=== PATIENT | male | born 1935 | race Two or more races ===

== ENCOUNTER 2016-06-27 00:53 | Inpatient (IN) | payer OTHER, MEDICAID ==
[~2016-06-27] VITALS: Ht 172.7 cm; Wt 78.8 kg
[2016-06-27 02:08] LABS: Basophils # (auto) 0 uL; Basophils % (auto) 0.5 % (0.0-2.0); Eosinophils # (auto) 0.1 uL; Eosinophils % (auto) 1.8 % (0.0-7.0); Hemoglobin 12.5 g/dL (13.5-17.5); Lymphocytes # (auto) 1.6 uL; Lymphocytes % (auto) 21.7 % (10.0-50.0); Mean Corpuscular Hemoglobin 31.6 pg (28.0-32.0); Mean Corpuscular Hgb Conc. 33.8 g/dL (32.0-36.0); Mean Corpuscular Volume 93.4 fL (80.0-100.0); Mean Platelet Volume 8.7 fL (7.4-10.4); Monocytes # (auto) 0.7 uL; Monocytes % (auto) 9.5 % (0.0-12.0); Neutrophils # (auto) 4.8 uL; Neutrophils % (auto) 66.5 % (37.0-80.0); Platelet Count (auto) 185 10^3/uL (140-450); Red Cell Distribution Width 14.8 % (11.6-16.0); White Blood Cell 7.2 10^3/uL (4.4-10.8)
[2016-06-27 02:19] LABS: Albumin 3.2 g/dL (3.4-5.0); Anion Gap 9 (5-15); Aspartate Aminotransferase 18 U/L (15-37); Blood Urea Nitrogen 18 mg/dL (7-18); Calcium 8.1 mg/dL (8.5-10.1); Carbon Dioxide 25 mmol/L (21-32); Chloride 111 mmol/L (98-107); GFR African American 93 mL/min; GFR Non-African American 77 mL/min; Glucose 97 mg/dL (74-106); Magnesium 2.2 mg/dL (1.6-2.6); Potassium 3.7 mmol/L (3.5-5.1); Sodium 145 mmol/L (136-145)
[2016-06-27 02:27] LABS: Temperature: 21.6 C (20.0-25.0)
[2016-06-27 02:29] LABS: Alkaline Phosphatase 87 U/L (45-117); Bilirubin, Total 0.3 mg/dL (0.2-1.0); Total Protein 6.3 g/dL (6.4-8.2)
[2016-06-27 02:41] LABS: Urine RBC None Seen /hpf (0 - 3)
[2016-06-27 02:52] LABS: Urine Bilirubin Negative (Negative); Urine Blood Negative /uL (Negative); Urine Color Yellow (Yellow); Urine Glucose Normal (Normal); Urine Ketone Negative (Negative); Urine Nitrite Negative (Negative); Urine Urobilinogen Normal (Negative); Urine pH 5.5 (5.0-8.0)
[2016-06-27] MEDS ORDERED: FUROSEMIDE 20 MG/2 ML VIAL IV ONE (07:00)
[2016-06-27] MEDS ORDERED: ASPirin 81 mg TAB PO ONE (08:45)
[2016-06-27] MEDS ORDERED: MORPHINE SULF INJ 2 MG/ML SYRINGE 1ML IV PRN ×2 (11:00)
[2016-06-27] MEDS ORDERED: DEXTROSE (50%) 50ML SYRG IV PRN (11:00)
[2016-06-27] MEDS ORDERED: ACETAMINOPHEN 500 MG TAB PO PRN (11:00)
[2016-06-27] MEDS ORDERED: LORazepam 0.5 MG TAB PO PRN (11:00)
[2016-06-27] MEDS ORDERED: TEMAZEPAM 15 MG CAP PO PRN (11:00)
[2016-06-27] MEDS ORDERED: LACTULOSE 20Gm/30ML SOLN PO PRN (11:00)
[2016-06-27] MEDS ORDERED: PROMETHAZINE HCL 25 MG/ML 1ML IV PRN (11:00)
[2016-06-27] MEDS ORDERED: NITROGLYCERIN 0.4 MG SL TAB SL PRN (11:00)
[2016-06-27] MEDS ORDERED: METOPROLOL TARTRATE 25 MG TAB PO ONE (11:15)
[2016-06-27] MEDS ORDERED: ENOXAPARIN SOD 40 MG/0.4 ML SYRINGE SC ONE (11:15)
[2016-06-27] MEDS ORDERED: NITROGLYCERIN 0.2MG/HR TOPICAL PATCH TD ONE (11:15)
[2016-06-27] MEDS ORDERED: ENALAPRIL MALEATE 10 MG TAB PO ONE (11:15)
[2016-06-27] MEDS: SODIUM CHLORIDE 0.9% 1,000 ML IV SCH ×2 (11:44→21:25)
[2016-06-27] MEDS: ACCU-CHEK COMFORT CURVE STRIP VI SCH ×3 (11:48→21:23)
[2016-06-27] MEDS: InsuLIN REG 1unit/0.01ml Soln (100units/ml) SC SCH ×3 (12:18→21:23)
[2016-06-27] MEDS: HYDROcodone-ACET 5/325MG TAB PO PRN (18:08)
[2016-06-27 20:30] VITALS: BP 137/74
[2016-06-27] MEDS: ATORVASTATIN 20 MG TAB PO SCH (21:22)
[2016-06-27] MEDS: METOPROLOL TARTRATE 25 MG TAB PO SCH (21:22)
[2016-06-27 21:49] VITALS: BP 132/67
[2016-06-28 04:38] VITALS: BP 105/58
[2016-06-28] MEDS: ACCU-CHEK COMFORT CURVE STRIP VI SCH ×4 (05:25→21:29)
[2016-06-28] MEDS: InsuLIN REG 1unit/0.01ml Soln (100units/ml) SC SCH ×4 (05:25→21:28)
[2016-06-28 07:05] LABS: Cholesterol 191 mg/dL (<200); HDL Cholesterol 41 mg/dL (40-59); LDL Cholesterol 128 mg/dL (<100); Triglycerides 135 mg/dL (<150)
[2016-06-28 08:20] VITALS: BP 123/70
[2016-06-28 09:03] VITALS: BP 124/73
[2016-06-28] MEDS ORDERED: ADENOSINE IV STA (09:46)
[2016-06-28] MEDS ORDERED: GIVE UN DILUTED IV STA (09:46)
[2016-06-28] MEDS ORDERED: ADENOSINE 61 MG in GIVE UN-DILUTED 0 ML IV STA (10:03)
[2016-06-28] MEDS ORDERED: ADENOSINE 61 MG in GIVE UN-DILUTED 0 ML IV ONE ×4 (11:30)
[2016-06-28] MEDS: NITROGLYCERIN 0.2MG/HR TOPICAL PATCH TD SCH (12:18)
[2016-06-28] MEDS: SODIUM CHLORIDE 0.9% 1,000 ML IV SCH (12:26)
[2016-06-28] MEDS: ASPirin 81 mg TAB PO SCH (12:37)
[2016-06-28] MEDS: METOPROLOL TARTRATE 25 MG TAB PO SCH ×2 (12:39→21:28)
[2016-06-28] MEDS: ENALAPRIL MALEATE 10 MG TAB PO SCH (12:40)
[2016-06-28] MEDS: ENOXAPARIN SOD 40 MG/0.4 ML SYRINGE SC SCH (12:46)
[2016-06-28 17:11] VITALS: BP 147/71
[2016-06-28] MEDS: ATORVASTATIN 20 MG TAB PO SCH (21:27)
[2016-06-28] MEDS: HYDROcodone-ACET 5/325MG TAB PO PRN (21:33)
[2016-06-28 22:00] VITALS: BP 147/72
[2016-06-29] MEDS: SODIUM CHLORIDE 0.9% 1,000 ML IV SCH ×2 (01:19→16:32)
[2016-06-29 05:10] VITALS: BP 147/72
[2016-06-29] MEDS: ACCU-CHEK COMFORT CURVE STRIP VI SCH ×3 (06:18→17:00)
[2016-06-29] MEDS: InsuLIN REG 1unit/0.01ml Soln (100units/ml) SC SCH ×3 (06:18→17:00)
[2016-06-29 08:00] VITALS: BP 150/96
[2016-06-29] MEDS: ENOXAPARIN SOD 40 MG/0.4 ML SYRINGE SC SCH (09:53)
[2016-06-29] MEDS: ASPirin 81 mg TAB PO SCH (09:54)
[2016-06-29] MEDS: ENALAPRIL MALEATE 10 MG TAB PO SCH (09:54)
[2016-06-29] MEDS: METOPROLOL TARTRATE 25 MG TAB PO SCH (09:55)
[2016-06-29 10:09] VITALS: BP 150/96
[2016-06-29] MEDS: NITROGLYCERIN 0.2MG/HR TOPICAL PATCH TD SCH (11:19)
[2016-06-29] MEDS ORDERED: ENALAPRILAT 1.25 MG/ML-1ML VIAL IV ONE (11:45)
[2016-06-29 15:01] VITALS: BP 185/91
[2016-06-29 16:36] VITALS: BP 156/72
== END 2016-06-29 17:04 | disposition home or self-care (01) | DRG 206 ==
LOC: ER 00:53 → TELE 00:54 → TELE-EAST 19:40
PROVIDERS: ADMIT Internal Medicine; ATTEND Internal Medicine
DX: M94.0 Chondrocostal junction syndrome [Tietze] (principal); I25.10 Atherosclerotic heart disease of native coronary artery without angina pectoris; E11.9 Type 2 diabetes mellitus without complications; I50.9 Heart failure, unspecified; I11.0 Hypertensive heart disease with heart failure; I25.2 Old myocardial infarction; Z95.1 Presence of aortocoronary bypass graft; Z95.0 Presence of cardiac pacemaker; Z79.4 Long term (current) use of insulin
CPT/HCPCS: 36415; 71010; 78452; 80053; 80061; 81001; 82550; 82962; 83036; 83735; 83880; 84484; 85025; 85379; 85652; 86141; 93005; 93017; 93971; 96372; 96374; J0153

== ENCOUNTER 2016-07-04 07:47 | Inpatient (IN) | payer OTHER, MEDICAID ==
[~2016-07-04] VITALS: Ht 162.6 cm; Wt 64.8 kg
[2016-07-04 11:10] LABS: Basophils # (auto) 0 uL; Basophils % (auto) 0.3 % (0.0-2.0); Eosinophils # (auto) 0 uL; Eosinophils % (auto) 0.7 % (0.0-7.0); Hematocrit 38.6 % (41.0-53.0); Lymphocytes # (auto) 1.2 uL; Mean Corpuscular Hemoglobin 31.5 pg (28.0-32.0); Mean Corpuscular Hgb Conc. 33.6 g/dL (32.0-36.0); Mean Corpuscular Volume 93.6 fL (80.0-100.0); Mean Platelet Volume 8.8 fL (7.4-10.4); Monocytes # (auto) 0.5 uL; Monocytes % (auto) 6.9 % (0.0-12.0); Neutrophils # (auto) 5.5 uL; Neutrophils % (auto) 76.1 % (37.0-80.0); Platelet Count (auto) 210 10^3/uL (140-450); Red Cell Distribution Width 14.4 % (11.6-16.0); White Blood Cell 7.3 10^3/uL (4.4-10.8)
[2016-07-04] MEDS ORDERED: SODIUM CHLORIDE 0.9% 1,000 ML IV ONE (11:27)
[2016-07-04 11:35] LABS: Albumin 3.9 g/dL (3.4-5.0); Alkaline Phosphatase 93 U/L (45-117); Anion Gap 8 (5-15); Aspartate Aminotransferase 27 U/L (15-37); BUN/Creatinine Ratio 15.1; Bilirubin, Total 0.6 mg/dL (0.2-1.0); Blood Urea Nitrogen 16 mg/dL (7-18); Calcium 8.8 mg/dL (8.5-10.1); Carbon Dioxide 28 mmol/L (21-32); Chloride 111 mmol/L (98-107); GFR African American 87 mL/min; GFR Non-African American 72 mL/min; Glucose 104 mg/dL (74-106); Potassium 3.7 mmol/L (3.5-5.1); Sodium 147 mmol/L (136-145); Total Protein 7.2 g/dL (6.4-8.2)
[2016-07-04] MEDS: SODIUM CHLORIDE 0.9% 1,000 ML IV SCH ×2 (12:06→22:14)
[2016-07-04 12:08] LABS: B-Type Natriuretic Peptide 71.03 pg/mL (0-100)
[2016-07-04] MEDS ORDERED: ACETAMINOPHEN 500 MG TAB PO PRN (12:15)
[2016-07-04] MEDS ORDERED: TEMAZEPAM 15 MG CAP PO PRN (12:15)
[2016-07-04] MEDS ORDERED: ONDANSETRON HCL 4 MG/2 ML VIAL IV PRN (12:15)
[2016-07-04] MEDS ORDERED: DEXTROSE (50%) 50ML SYRG IV PRN (12:15)
[2016-07-04] MEDS ORDERED: LACTULOSE 20Gm/30ML SOLN PO PRN (12:15)
[2016-07-04] MEDS ORDERED: MORPHINE SULF INJ 2 MG/ML SYRINGE 1ML IV PRN ×2 (12:15)
[2016-07-04] MEDS ORDERED: NITROGLYCERIN 0.4 MG SL TAB SL PRN (12:15)
[2016-07-04] MEDS ORDERED: LORazepam 0.5 MG TAB PO PRN (12:15)
[2016-07-04] MEDS ORDERED: NITROGLYCERIN 0.2MG/HR TOPICAL PATCH TD ONE (13:00)
[2016-07-04] MEDS ORDERED: ENOXAPARIN SOD 40 MG/0.4 ML SYRINGE SC ONE (13:00)
[2016-07-04] MEDS ORDERED: PANTOPRAZOLE 40 MG TAB PO ONE (13:00)
[2016-07-04] MEDS ORDERED: METOPROLOL TARTRATE 25 MG TAB PO ONE (13:00)
[2016-07-04] MEDS: ACCU-CHEK COMFORT CURVE STRIP VI SCH ×2 (17:00→22:14)
[2016-07-04] MEDS: InsuLIN REG 1unit/0.01ml Soln (100units/ml) SC SCH ×2 (17:00→22:00)
[2016-07-04 17:42] LABS: Urine RBC None Seen /hpf (0 - 3)
[2016-07-04 18:10] LABS: Urine Bilirubin Negative (Negative); Urine Blood Negative /uL (Negative); Urine Color Yellow (Yellow); Urine Glucose Normal (Normal); Urine Ketone Negative (Negative); Urine Nitrite Negative (Negative); Urine Urobilinogen Normal (Negative); Urine pH 5.5 (5.0-8.0)
[2016-07-04] MEDS ORDERED: ACET500C PO (18:57)
[2016-07-04] MEDS ORDERED: OLME40TA27 PO (18:57)
[2016-07-04] MEDS ORDERED: IBUP600T27 PO (18:57)
[2016-07-04] MEDS ORDERED: ATOR40TA52 PO (18:57)
[2016-07-04] MEDS ORDERED: ASPI81CH43 PO (18:57)
[2016-07-04] MEDS ORDERED: ISOS10TA45 PO (18:57)
[2016-07-04] MEDS ORDERED: CARV12.544 PO (18:57)
[2016-07-04 20:02] VITALS: BP 135/81
[2016-07-04 22:00] VITALS: BP 135/81
[2016-07-04] MEDS: ATORVASTATIN 20 MG TAB PO SCH (22:01)
[2016-07-04] MEDS: METOPROLOL TARTRATE 25 MG TAB PO SCH (22:02)
[2016-07-05 05:00] VITALS: BP 158/79
[2016-07-05 06:14] LABS: Cholesterol 168 mg/dL (0-200); HDL Cholesterol 42 mg/dL (40-59); LDL Cholesterol 111 mg/dL (<100); Triglycerides 107 mg/dL (<150)
[2016-07-05] MEDS: InsuLIN REG 1unit/0.01ml Soln (100units/ml) SC SCH ×2 (06:38→11:30)
[2016-07-05] MEDS: ACCU-CHEK COMFORT CURVE STRIP VI SCH ×2 (06:38→11:43)
[2016-07-05 08:00] VITALS: BP 153/76
[2016-07-05] MEDS: HYDROcodone-ACET 5/325MG TAB PO PRN (08:12)
[2016-07-05] MEDS: ASPirin 81 mg TAB PO SCH (10:24)
[2016-07-05] MEDS: ENOXAPARIN SOD 40 MG/0.4 ML SYRINGE SC SCH (10:24)
[2016-07-05] MEDS: PANTOPRAZOLE 40 MG TAB PO SCH (10:24)
[2016-07-05] MEDS: METOPROLOL TARTRATE 25 MG TAB PO SCH ×2 (10:24→22:10)
[2016-07-05] MEDS: NITROGLYCERIN 0.2MG/HR TOPICAL PATCH TD SCH (10:26)
[2016-07-05 12:00] VITALS: BP 155/82
[2016-07-05] MEDS: SODIUM CHLORIDE 0.9% 1,000 ML IV SCH (14:46)
[2016-07-05] MEDS ORDERED: IOHEXOL 350 MG/ML 100ML IJ ONE (15:43)
[2016-07-05 17:00] VITALS: BP 140/69
[2016-07-05 22:00] VITALS: BP 146/73
[2016-07-05] MEDS: ATORVASTATIN 20 MG TAB PO SCH (22:11)
[2016-07-06] MEDS: SODIUM CHLORIDE 0.9% 1,000 ML IV SCH ×2 (04:06→16:42)
[2016-07-06 05:00] VITALS: BP 146/74
[2016-07-06 09:00] VITALS: BP 151/77
[2016-07-06] MEDS: PANTOPRAZOLE 40 MG TAB PO SCH (10:37)
[2016-07-06] MEDS: METOPROLOL TARTRATE 25 MG TAB PO SCH ×2 (10:38→22:46)
[2016-07-06] MEDS: NITROGLYCERIN 0.2MG/HR TOPICAL PATCH TD SCH (10:38)
[2016-07-06] MEDS: ASPirin 81 mg TAB PO SCH (10:39)
[2016-07-06] MEDS: ENOXAPARIN SOD 40 MG/0.4 ML SYRINGE SC SCH (10:39)
[2016-07-06 12:43] VITALS: BP 114/82
[2016-07-06 16:29] VITALS: BP 151/76
[2016-07-06] MEDS: HYDROcodone-ACET 5/325MG TAB PO PRN (18:24)
[2016-07-06 22:00] VITALS: BP 159/81
[2016-07-06] MEDS: ATORVASTATIN 20 MG TAB PO SCH (22:45)
[2016-07-07 05:00] VITALS: BP 154/74
[2016-07-07] MEDS: SODIUM CHLORIDE 0.9% 1,000 ML IV SCH ×2 (06:40→20:06)
[2016-07-07] MEDS: HYDROcodone-ACET 5/325MG TAB PO PRN ×2 (07:29→20:18)
[2016-07-07] MEDS: ASPirin 81 mg TAB PO SCH (08:57)
[2016-07-07] MEDS: METOPROLOL TARTRATE 25 MG TAB PO SCH ×2 (08:58→22:24)
[2016-07-07] MEDS: PANTOPRAZOLE 40 MG TAB PO SCH (08:59)
[2016-07-07 09:00] VITALS: BP 160/89
[2016-07-07] MEDS: ENOXAPARIN SOD 40 MG/0.4 ML SYRINGE SC SCH (09:00)
[2016-07-07] MEDS: NITROGLYCERIN 0.2MG/HR TOPICAL PATCH TD SCH (09:01)
[2016-07-07 13:00] VITALS: BP 133/68
[2016-07-07 17:00] VITALS: BP 123/69
[2016-07-07] MEDS: ATORVASTATIN 20 MG TAB PO SCH (22:24)
[2016-07-07 22:53] VITALS: BP 146/74
[2016-07-08] MEDS: HYDROcodone-ACET 5/325MG TAB PO PRN (05:41)
[2016-07-08 05:42] VITALS: BP 136/75
[2016-07-08 08:40] VITALS: BP 146/85
[2016-07-08] MEDS: SODIUM CHLORIDE 0.9% 1,000 ML IV SCH (09:26)
[2016-07-08] MEDS: ENOXAPARIN SOD 40 MG/0.4 ML SYRINGE SC SCH (09:33)
[2016-07-08] MEDS: NITROGLYCERIN 0.2MG/HR TOPICAL PATCH TD SCH (09:33)
[2016-07-08] MEDS: ASPirin 81 mg TAB PO SCH (09:33)
[2016-07-08] MEDS: METOPROLOL TARTRATE 25 MG TAB PO SCH (09:34)
[2016-07-08] MEDS: PANTOPRAZOLE 40 MG TAB PO SCH (09:34)
[2016-07-08 09:49] LABS: Basophils # (auto) 0 uL; Basophils % (auto) 0.4 % (0.0-2.0); Eosinophils # (auto) 0.1 uL; Eosinophils % (auto) 0.9 % (0.0-7.0); Hematocrit 40.9 % (41.0-53.0); Lymphocytes # (auto) 1.6 uL; Lymphocytes % (auto) 18.2 % (10.0-50.0); Mean Corpuscular Hemoglobin 31.6 pg (28.0-32.0); Mean Corpuscular Hgb Conc. 34.2 g/dL (32.0-36.0); Mean Corpuscular Volume 92.5 fL (80.0-100.0); Mean Platelet Volume 8.7 fL (7.4-10.4); Monocytes # (auto) 0.8 uL; Monocytes % (auto) 8.6 % (0.0-12.0); Neutrophils # (auto) 6.3 uL; Neutrophils % (auto) 71.9 % (37.0-80.0); Platelet Count (auto) 208 10^3/uL (140-450); Red Cell Distribution Width 14.5 % (11.6-16.0); White Blood Cell 8.7 10^3/uL (4.4-10.8)
[2016-07-08 12:31] VITALS: BP 153/73
[2016-07-08 14:11] VITALS: BP 153/73
== END 2016-07-08 16:00 | disposition home or self-care (01) | DRG 303 ==
LOC: ER 07:48 → TELE 07:49 → TELE-E-ADS 15:53 → TELE-WESTW 18:15
PROVIDERS: ADMIT Internal Medicine; ATTEND Family Medicine
DX: I25.110 Atherosclerotic heart disease of native coronary artery with unstable angina pectoris (principal); E11.9 Type 2 diabetes mellitus without complications; E78.5 Hyperlipidemia, unspecified; I10 Essential (primary) hypertension; M94.0 Chondrocostal junction syndrome [Tietze]; I25.2 Old myocardial infarction; Z95.0 Presence of cardiac pacemaker; Z95.1 Presence of aortocoronary bypass graft; Z79.82 Long term (current) use of aspirin; Z79.899 Other long term (current) drug therapy
CPT/HCPCS: 36415; 71020; 71275; 80053; 80061; 81001; 82550; 82962; 83036; 83880; 84132; 84484; 85025; 85379; 85652; 86141; 87081; 93005; 93306; 94761; 96372

== ENCOUNTER 2016-12-22 05:42 | Emergency (ER) | payer OTHER, MEDICAID ==
[~2016-12-22] VITALS: Ht 167.6 cm; Wt 72.6 kg
[~2016-12-22 05:42] MED LIST: ACET500C PO; ASPI81CH43 PO; ATOR40TA52 PO; CARV12.544 PO; IBUP600T27 PO; ISOS10TA45 PO; OLME40TA27 PO
[2016-12-22 06:56] LABS: Basophils # (auto) 0 uL; Basophils % (auto) 0.3 % (0.0-2.0); CONDITION Y; Eosinophils # (auto) 0.1 uL; Eosinophils % (auto) 1.9 % (0.0-7.0); Hematocrit 36.4 % (41.0-53.0); Hemoglobin 12.5 g/dL (13.5-17.5); Lymphocytes # (auto) 1.5 uL; Lymphocytes % (auto) 23.3 % (10.0-50.0); Mean Corpuscular Hemoglobin 32.1 pg (28.0-32.0); Mean Corpuscular Hgb Conc. 34.3 g/dL (32.0-36.0); Mean Corpuscular Volume 93.6 fL (80.0-100.0); Mean Platelet Volume 8.6 fL (6.9-10.8); Monocytes # (auto) 0.5 uL; Monocytes % (auto) 7.9 % (0.0-12.0); Neutrophils # (auto) 4.3 uL; Neutrophils % (auto) 66.6 % (37.0-80.0); Platelet Count (auto) 174 10^3/uL (140-450); Red Cell Distribution Width 14.4 % (11.8-14.3); White Blood Cell 6.5 10^3/uL (4.4-10.8)
[2016-12-22 07:16] LABS: INR 1.01 (0.9-1.15); Partial Thromboplastin Time 26.1 sec (22.64-33.71)
[2016-12-22 07:28] LABS: Albumin 3.7 g/dL (3.4-5.0); Alkaline Phosphatase 87 U/L (45-117); Anion Gap 5 (5-15); Aspartate Aminotransferase 24 U/L (15-37); Bilirubin, Total 0.7 mg/dL (0.2-1.0); Blood Urea Nitrogen 13 mg/dL (7-18); Calcium 8.6 mg/dL (8.5-10.1); Carbon Dioxide 27 mmol/L (21-32); Chloride 110 mmol/L (98-107); GFR African American 93 mL/min; GFR Non-African American 77 mL/min; Glucose 102 mg/dL (74-106); Magnesium 2.3 mg/dL (1.6-2.6); Potassium 3.6 mmol/L (3.5-5.1); Sodium 142 mmol/L (136-145); Total Protein 6.7 g/dL (6.4-8.2)
[2016-12-22 11:19] VITALS: BP 118/79
[2016-12-26] MEDS ORDERED: ISO60SRT PO (14:37)
[2016-12-26] MEDS ORDERED: CAR125T PO (14:37)
== END 2016-12-22 11:36 | disposition home or self-care (01) ==
LOC: EDBD 05:42 → ER 05:52
DX: I25.10 Atherosclerotic heart disease of native coronary artery without angina pectoris (principal); I10 Essential (primary) hypertension; E11.9 Type 2 diabetes mellitus without complications; I25.2 Old myocardial infarction; Z95.1 Presence of aortocoronary bypass graft; Z95.0 Presence of cardiac pacemaker; Z79.899 Other long term (current) drug therapy
CPT/HCPCS: 36415; 71010; 80053; 83735; 84484; 85025; 85610; 85730; 93005; 99285; J7030

== ENCOUNTER 2017-01-07 06:48 | Emergency (ER) | payer OTHER, MEDICAID ==
[~2017-01-07] VITALS: Ht 157.5 cm; Wt 63.5 kg
[~2017-01-07 06:48] MED LIST changes: +CAR125T PO; -CARV12.544 PO; -IBUP600T27 PO; +ISO60SRT PO; -ISOS10TA45 PO
[2017-01-07] MEDS ORDERED: ASPirin 81 mg TAB PO ONE (07:30)
[2017-01-07 09:04] LABS: Basophils # (auto) 0 uL; Basophils % (auto) 0.4 % (0.0-2.0); Eosinophils # (auto) 0.1 uL; Eosinophils % (auto) 1.5 % (0.0-7.0); Hematocrit 37.3 % (41.0-53.0); Hemoglobin 12.9 g/dL (13.5-17.5); Lymphocytes # (auto) 1.6 uL; Lymphocytes % (auto) 19.6 % (10.0-50.0); Mean Corpuscular Hemoglobin 32.4 pg (28.0-32.0); Mean Corpuscular Hgb Conc. 34.8 g/dL (32.0-36.0); Mean Corpuscular Volume 93.2 fL (80.0-100.0); Mean Platelet Volume 8.4 fL (6.9-10.8); Monocytes # (auto) 0.6 uL; Monocytes % (auto) 7.7 % (0.0-12.0); Neutrophils # (auto) 5.6 uL; Neutrophils % (auto) 70.8 % (37.0-80.0); Platelet Count (auto) 145 10^3/uL (140-450); Red Cell Distribution Width 13.9 % (11.8-14.3)
[2017-01-07 09:20] LABS: INR 1.05 (0.9-1.15); Partial Thromboplastin Time 26.7 sec (22.64-33.71); Prothrombin Time 11.4 sec (9.37-12.3)
[2017-01-07 09:27] LABS: Albumin 3.5 g/dL (3.4-5.0); Alkaline Phosphatase 100 U/L (45-117); Anion Gap 5 (5-15); Aspartate Aminotransferase 23 U/L (15-37); BUN/Creatinine Ratio 16.1; Bilirubin, Total 0.7 mg/dL (0.2-1.0); Blood Urea Nitrogen 15 mg/dL (7-18); Calcium 8.4 mg/dL (8.5-10.1); Carbon Dioxide 25 mmol/L (21-32); Chloride 112 mmol/L (98-107); GFR African American 101 mL/min; GFR Non-African American 83 mL/min; Glucose 100 mg/dL (74-106); Magnesium 2.4 mg/dL (1.6-2.6); Potassium 3.6 mmol/L (3.5-5.1); Sodium 142 mmol/L (136-145); Total Protein 6.5 g/dL (6.4-8.2)
[2017-01-07] MEDS ORDERED: NITROGLYCERIN 0.4 MG SL TAB SL ONE (09:45)
[2017-01-07 09:49] LABS: B-Type Natriuretic Peptide 177.36 pg/mL (0-100)
[2017-01-07 10:04] LABS: Temperature: 22.3 C (20.0-25.0)
[2017-01-07] MEDS ORDERED: ACETAMINOPHEN 325 MG TAB PO ONE (10:15)
[2017-01-07] MEDS ORDERED: cloNIDine HCL 0.1 MG TAB PO ONE (10:15)
[2017-01-07 11:11] VITALS: BP 168/76
== END 2017-01-07 14:29 | disposition home or self-care (01) ==
LOC: EDBD 06:48 → ER 06:48
DX: R07.9 Chest pain, unspecified (principal); I10 Essential (primary) hypertension; I25.2 Old myocardial infarction; E78.5 Hyperlipidemia, unspecified; I25.810 Atherosclerosis of coronary artery bypass graft(s) without angina pectoris; R06.02 Shortness of breath
CPT/HCPCS: 36415; 71010; 80053; 83735; 83880; 84484; 85025; 85610; 85730; 93005

== ENCOUNTER 2017-05-23 09:03 | Emergency (ER) | payer OTHER, MEDICAID ==
[~2017-05-23] VITALS: Ht 162.6 cm; Wt 62.1 kg
[~2017-05-23 09:03] MED LIST changes: -ACET500C PO; -ATOR40TA52 PO
[2017-05-23 09:59] LABS: Basophils # (auto) 0.1 uL; Basophils % (auto) 0.7 % (0.0-2.0); Eosinophils # (auto) 0.2 uL; Eosinophils % (auto) 2.2 % (0.0-7.0); Hemoglobin 14.3 g/dL (13.5-17.5); Lymphocytes # (auto) 1.3 uL; Lymphocytes % (auto) 16.6 % (10.0-50.0); Mean Corpuscular Hemoglobin 30.9 pg (28.0-32.0); Mean Corpuscular Hgb Conc. 33.2 g/dL (32.0-36.0); Mean Corpuscular Volume 93.2 fL (80.0-100.0); Monocytes # (auto) 0.7 uL; Monocytes % (auto) 8.5 % (0.0-12.0); Neutrophils # (auto) 5.6 uL; Nucleated Red Blood Cells % 0.2 %; Platelet Count (auto) 184 10^3/uL (140-450); Red Blood Cells 4.62 10^6/uL (4.5-5.90); Red Cell Distribution Width 14.6 % (11.8-14.3); White Blood Cell 7.8 10^3/uL (4.4-10.8)
[2017-05-23 10:25] LABS: Alanine Aminotransferase 44 U/L (16-61); Anion Gap 11 (5-15); Aspartate Aminotransferase 30 U/L (15-37); BUN/Creatinine Ratio 20.8; Blood Urea Nitrogen 22 mg/dL (7-18); Calcium 8.8 mg/dL (8.5-10.1); Carbon Dioxide 25 mmol/L (21-32); Chloride 107 mmol/L (98-107); GFR African American 86 mL/min; GFR Non-African American 71 mL/min; Glucose 106 mg/dL (74-106); Magnesium 2.2 mg/dL (1.6-2.6); Potassium 3.7 mmol/L (3.5-5.1); Sodium 143 mmol/L (136-145)
[2017-05-23 10:29] LABS: Alkaline Phosphatase 117 U/L (45-117); Bilirubin, Total 0.6 mg/dL (0.2-1.0); Total Protein 7.3 g/dL (6.4-8.2)
[2017-05-23 11:13] LABS: Urine WBC None Seen /hpf (0 - 3)
[2017-05-23 11:20] VITALS: BP 150/74
[2017-05-23 11:26] LABS: Urine Bacteria NONE SEEN /hpf (None Seen); Urine Blood Negative /uL (Negative); Urine Mucus FEW (None Seen)
== END 2017-05-23 12:55 | disposition home or self-care (01) ==
LOC: ER 09:03
DX: R07.89 Other chest pain (principal); E78.5 Hyperlipidemia, unspecified; I10 Essential (primary) hypertension; I25.810 Atherosclerosis of coronary artery bypass graft(s) without angina pectoris; I48.91 Unspecified atrial fibrillation
CPT/HCPCS: 36415; 71045; 80053; 81001; 83735; 84484; 85025; 93005

== ENCOUNTER 2017-09-14 07:13 | Inpatient (IN) | payer OTHER, MEDICAID ==
[~2017-09-14] VITALS: Ht 162.6 cm; Wt 62.3 kg
[2017-09-14] MEDS ORDERED: SODIUM CHLORIDE 0.9% 1,000 ML IV ONE (07:25)
[2017-09-14 07:59] LABS: Urine Bacteria NONE SEEN /hpf (None Seen); Urine Blood Negative /uL (Negative); Urine Specific Gravity 1.019 (1.001-1.035); Urine WBC <1 /hpf (0 - 3)
[2017-09-14 08:24] LABS: Basophils # (auto) 0 uL; Basophils % (auto) 0.5 % (0.0-2.0); Eosinophils # (auto) 0.1 uL; Eosinophils % (auto) 1.2 % (0.0-7.0); Hematocrit 41.1 % (41.0-53.0); Hemoglobin 13.8 g/dL (13.5-17.5); Lymphocytes # (auto) 0.9 uL; Lymphocytes % (auto) 14.7 % (10.0-50.0); Mean Corpuscular Hemoglobin 31.2 pg (28.0-32.0); Mean Corpuscular Hgb Conc. 33.7 g/dL (32.0-36.0); Mean Corpuscular Volume 92.4 fL (80.0-100.0); Monocytes # (auto) 0.5 uL; Monocytes % (auto) 8.6 % (0.0-12.0); Neutrophils # (auto) 4.5 uL; Nucleated Red Blood Cells % 0.1 %; Platelet Count (auto) 165 10^3/uL (140-450); Red Blood Cells 4.44 10^6/uL (4.5-5.90); Red Cell Distribution Width 14.6 % (11.8-14.3)
[2017-09-14 08:44] LABS: Alanine Aminotransferase 33 U/L (16-61); Albumin 3.4 g/dL (3.4-5.0); Anion Gap 8 (5-15); Aspartate Aminotransferase 23 U/L (15-37); BUN/Creatinine Ratio 14.4; Blood Urea Nitrogen 15 mg/dL (7-18); Calcium 8.4 mg/dL (8.5-10.1); Carbon Dioxide 27 mmol/L (21-32); Chloride 110 mmol/L (98-107); GFR African American 88 mL/min; GFR Non-African American 73 mL/min; Glucose 95 mg/dL (74-106); Potassium 3.4 mmol/L (3.5-5.1); Sodium 145 mmol/L (136-145)
[2017-09-14 08:46] LABS: INR 0.97 (0.9-1.15); Partial Thromboplastin Time 25.9 sec (23.78-33.04); Prothrombin Time 10.4 sec (9.27-12.13)
[2017-09-14 08:52] LABS: Alkaline Phosphatase 103 U/L (45-117); Bilirubin, Total 0.4 mg/dL (0.2-1.0); Total Protein 6.6 g/dL (6.4-8.2)
[2017-09-14] MEDS ORDERED: ALUM & MAG HYDROX-SIMETH LIQ(MAALOX) 30 ML PO ONE (11:30)
[2017-09-14] MEDS ORDERED: NITROGLYCERIN 0.4 MG SL TAB SL PRN ×2 (11:30)
[2017-09-14] MEDS ORDERED: ZOLPIDEM TARTRATE 5 MG TAB PO PRN (11:30)
[2017-09-14] MEDS ORDERED: MORPHINE SULFATE 8mg/ml INJ SDV IV PRN ×2 (11:30)
[2017-09-14] MEDS ORDERED: ACETAMINOPHEN 325 MG TAB PO PRN (11:30)
[2017-09-14] MEDS ORDERED: ONDANSETRON HCL 4 MG/2 ML VIAL IV PRN (11:30)
[2017-09-14] MEDS: SODIUM CHLOR 0.9% PF (SALINE LOCK) 10ML VIAL/SYR IV SCH ×2 (11:38→22:56)
[2017-09-14] MEDS ORDERED: cloNIDine HCL 0.1 MG TAB PO PRN (11:45)
[2017-09-14] MEDS ORDERED: FUROSEMIDE 20 MG TAB PO ONE (11:45)
[2017-09-14] MEDS ORDERED: LOSARTAN POTASSIUM 50 MG TAB PO ONE (11:45)
[2017-09-14] MEDS ORDERED: POTASSIUM CHL 10 Meq TABLET PO ONE (11:45)
[2017-09-14 12:46] VITALS: BP 168/89
[2017-09-14] MEDS: LORazepam 0.5 MG TAB PO PRN (16:54)
[2017-09-14 17:00] VITALS: BP 194/93
[2017-09-14] MEDS ORDERED: ATORVASTATIN 20 MG TAB PO SCH (22:00)
[2017-09-14 22:11] VITALS: BP 148/80
[2017-09-14] MEDS: CARVEDILOL 3.125 MG TAB PO SCH (22:56)
[2017-09-15] MEDS: LORazepam 0.5 MG TAB PO PRN (03:05)
[2017-09-15 04:41] VITALS: BP 142/73
[2017-09-15] MEDS: SODIUM CHLOR 0.9% PF (SALINE LOCK) 10ML VIAL/SYR IV SCH ×2 (06:00→14:42)
[2017-09-15 06:34] LABS: Basophils # (auto) 0 uL; Basophils % (auto) 0.4 % (0.0-2.0); Eosinophils # (auto) 0.1 uL; Eosinophils % (auto) 1.4 % (0.0-7.0); Hematocrit 41.7 % (41.0-53.0); Hemoglobin 14.5 g/dL (13.5-17.5); Lymphocytes # (auto) 1.5 uL; Lymphocytes % (auto) 17.5 % (10.0-50.0); Mean Corpuscular Hemoglobin 31.9 pg (28.0-32.0); Mean Corpuscular Hgb Conc. 34.7 g/dL (32.0-36.0); Mean Corpuscular Volume 91.8 fL (80.0-100.0); Monocytes # (auto) 0.7 uL; Monocytes % (auto) 8.3 % (0.0-12.0); Neutrophils # (auto) 6.2 uL; Neutrophils % (auto) 72.4 % (37.0-80.0); Nucleated Red Blood Cells % 0.1 %; Platelet Count (auto) 163 10^3/uL (140-450); Red Blood Cells 4.55 10^6/uL (4.5-5.90); Red Cell Distribution Width 14.5 % (11.8-14.3); White Blood Cell 8.5 10^3/uL (4.4-10.8)
[2017-09-15 07:01] LABS: Albumin 3.5 g/dL (3.4-5.0); BUN/Creatinine Ratio 17.3; Bilirubin, Total 0.7 mg/dL (0.2-1.0); Calcium 8.6 mg/dL (8.5-10.1); Magnesium 2.3 mg/dL (1.6-2.6); Potassium 3.8 mmol/L (3.5-5.1); Total Protein 6.6 g/dL (6.4-8.2)
[2017-09-15 08:41] VITALS: BP 149/76
[2017-09-15] MEDS ORDERED: POTASSIUM CHL 10 Meq TABLET PO SCH (10:00)
[2017-09-15] MEDS ORDERED: CLOPIDOGREL BISULFATE 75 MG TAB PO SCH (10:00)
[2017-09-15] MEDS ORDERED: ISOSORBIDE MONONITRATE 60 MG TAB PO SCH (10:00)
[2017-09-15] MEDS ORDERED: DOCUSATE SOD 100 MG CAP PO SCH (10:00)
[2017-09-15] MEDS ORDERED: FUROSEMIDE 20 MG TAB PO SCH (10:00)
[2017-09-15] MEDS ORDERED: LOSARTAN POTASSIUM 50 MG TAB PO SCH (10:00)
[2017-09-15] MEDS ORDERED: ASPirin 81 mg TAB PO SCH (10:00)
[2017-09-15] MEDS: CARVEDILOL 3.125 MG TAB PO SCH (11:15)
[2017-09-15 13:04] VITALS: BP 169/79
[2017-09-15] MEDS ORDERED: HYDROcodone-ACET 5/325MG TAB PO ONE (15:45)
[2017-09-15] MEDS ORDERED: MORPHINE SULF(PF) 0.5MG/ML 10ML VIAL IV PRN (16:30)
[2017-09-15 17:00] VITALS: BP 113/71
== END 2017-09-15 18:10 | disposition home or self-care (01) | DRG 308 ==
LOC: EDBD 07:13 → EDUNIT# 07:13 → ER 07:13 → TELE 07:14 → TELE-WESTW 12:29
PROVIDERS: ADMIT Internal Medicine; ATTEND Family Medicine
PROC: 4B02XSZ Measurement of Cardiac Pacemaker, External Approach (ICD-10-PCS; principal; 2017-09-15)
DX: I48.0 Paroxysmal atrial fibrillation (principal); I50.43 Acute on chronic combined systolic (congestive) and diastolic (congestive) heart failure; D68.69 Other thrombophilia; I24.9 Acute ischemic heart disease, unspecified; I48.92 Unspecified atrial flutter; I25.10 Atherosclerotic heart disease of native coronary artery without angina pectoris; E78.5 Hyperlipidemia, unspecified; N18.2 Chronic kidney disease, stage 2 (mild); I70.0 Atherosclerosis of aorta; E87.6 Hypokalemia; E83.51 Hypocalcemia; I11.0 Hypertensive heart disease with heart failure; Z90.49 Acquired absence of other specified parts of digestive tract; Z95.1 Presence of aortocoronary bypass graft; Z79.899 Other long term (current) drug therapy; Z79.4 Long term (current) use of insulin; Z95.0 Presence of cardiac pacemaker
CPT/HCPCS: 36415; 71045; 80053; 80061; 81001; 83735; 83880; 84443; 84484; 85025; 85610; 85730; 93005; 93288; 94761; 96360